=== PATIENT | female | born 1990 | race Caucasian/White ===

== ENCOUNTER 2025-04-01 21:09 | Outpatient (REF) | payer OTHER, SELFPAY ==
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
--- OUTSIDE RECORDS SUMMARY | 2024-07-16 10:30 | XMS_ITS ---
Author Organization [facility] es Address [address] [place] [address] Care Team Providers Care Emergency Communications Operator Name Role Phone Amarjit Wynne Primary Care Provider REASON FOR VISIT EST CARE, COURT ORDERED, LIFE STRESSORS/EVICTION Encounters Encounter Location Date Provider Diagnosis [facility] [address] [place] [address] 2024 Amarjit Wynne Plan Of Treatment No Information Progress Notes * CHRISTOPHER COTTODOB:1990 ([age] yo F)Acc No.[id number]:07/16/2024 Consult - Patient Patient: CHRISTOPHER HOUSTON :?XENA Jackson-SDOB:1990???Age:34 Y ???Sex:FemaleDate:07/16/2024Phone:[phone]:[address] [facility] [place] Subjective: * Chief Complaints: * E ST CARE, COURT ORDERED, LIFE STRESSORS/EVICTION Care Plan Details* * Electronic signature of JOSE RAMON Jackson, [id number] on 04/01/2025 at 09:16 PM ESTSign off status: Pending * Provider: JOSE RAMON Jean Baptiste Date: 0 07/16/2024 Generated for Printing/Faxing/eTransmitting on:?04/01/2025 09:16 PM EST
--- OUTSIDE RECORDS SUMMARY | 2025-04-01 13:00 | XMS_ITS | Encounter Summary ---
Author Organization [facility] Address [address] [place] [address] Care Team Providers Care Lapidary Apprentice Name Role Phone Unavailable Primary Care Provider Unavailabl e Reason for Visit * ReasonCommentsGynecologic Exam Encounter Details DateTypeDepartmentCare Team (Latest Contact Info)Wmstzolvxdo97/29/2025 1:00 PM ESTProcedure Visit [facility]BS[facility] [address] [place] [address] Araceli Webber NP [address] [place] [address] Well woman exam with routine gynecological exam Social History Tobacco UseTypesPacks/DayYears UsedDateSmoking Tobacco: Never Assessed CommentsNoSex and Gender InformationValueDate RecordedSex Assigned at BirthNot on fileLegal RqfJhcqqf65/15/2023 11:47 PM EDTGender IdentityNot on fileSexual OrientationNot on filedocumented as of this encounter Last Filed Vital Signs Vital SignReadingTime TakenCommentsBlood Iycauevl492/7204/01/2025 1:36 PM EST Pulse--Temperature--Respiratory Rate--Oxygen Saturation--Inhaled Oxygen Concentration--Eiblgb93.2 kg (179 lb)04/01/2025 1:36 PM KQDIshlhg079.6 cm (5' 6 )04/01/2025 1:36 PM ESTBody Mass Index28.8904/01/2025 1:36 PM ESTdocumented in this encounter Progress Notes * Araceli Webber NP - 04/01/2025 1:00 PM EST Reason for Appointment: Patient ID: Tina Liu is a 35 y.o. female who presents for Gynecologic Exam Patient presents today for Annual Exam. MEDICATIONS Current Outpatient Medications Medication Instructions FLUoxetine (PROZAC) 10 mg, Daily levocetirizine (XYZAL) 5 mg, Nightly levothyroxine (Synthroid, Levoxyl) 88 MCG tablet Every 24 hours traZODone (DESYREL) 50 mg, Nightly PRN valACYclovir (VALTREX) 1,000 mg, 2 times daily Vyvanse 40 mg, Every morning ALLERGIES No Known Allergies PROBLEMS Active Ambulatory Problems Diagnosis Date Noted No Active Ambulatory Problems Resolved Ambulatory Problems Diagnosis Date Noted No Resolved Ambulatory Problems No Additional Past Medical History HISTORY PAST MEDICAL HISTORY SOCIAL HISTORY No past medical history on file. Social History Tobacco Use Smoking status: Not on file Smokeless tobacco: Not on file Substance Use Topics Alcohol use: Not on file Drug use: Not on file FAMILY HISTORY No family history on file. SURGICAL HISTORY No past surgical history on file. REVIEW OF SYSTEMS Review of Systems: Review of Systems All other systems reviewed and are negative. OBJECTIVE Objective: Physical Exam Constitutional: Appearance: Normal appearance. She is well-developed. Genitourinary: Vulva normal. Breasts: Breasts are soft. Right: Normal. Left: Normal. Cardiovascular: Rate and Rhythm: Normal rate and regular rhythm. Pulmonary: Effort: Pulmonary effort is normal. Breath sounds: Normal breath sounds. Abdominal: General: Bowel sounds are normal. There is no distension. Palpations: Abdomen is soft. Tenderness: There is no abdominal tenderness. There is no guarding or rebound. Musculoskeletal: General: No swelling. Normal range of motion. Right lower leg: No edema. Left lower leg: No edema. Neurological: Mental Status: She is alert and oriented to person, place, and time. Skin: General: Skin is warm and dry. Psychiatric: Mood and Affect: Mood normal. Behavior: Behavior normal. Vitals and nursing note reviewed. Exam conducted with a retail support associate present. Vitals: There is no height or weight on file to calculate BMI. BP: No LMP recorded. Assessment/Plan ICD-10-CM 1. Well woman exam with routine gynecological exam Z01.419 Pap Smear HPV DNA probe, amplified Assessment/Plan Annual Exam: Patient presents today for an annual exam. Patient states she is doing well and has no complaints. Pap was obtained without difficulty. Orders Placed This Encounter Procedures HPV DNA probe, amplified Follow Up: Patient is to return in one year for annual unless needed otherwise. Documented by Nita Almaraz MA on behalf of: Araceli Webber NP documented in this encounter Plan of Treatment NameTypePriorityAssociated DiagnosesOrder SchedulePap SmearPathology and CytologyRoutine Well woman exam with routine gynecological exam Ordered: 04/01/2025HPV DNA probe, amplifiedMicrobiologyRoutine Well woman exam with routine gynecological exam Ordered: 04/01/2025documented as of this encounter Visit Diagnoses Diagnosis Well woman exam with routine gynecological exam Routine gynecological examination documented in this encounter
--- OUTSIDE RECORDS SUMMARY | 2025-04-01 21:16 | XMS_ITS | Clinical Summary ---
Author Organization [facility] Address [address] [place] [address] Care Team Providers Care Screw Eye Assembler Name Role Phone Unavailable Primary Care Provider Unavailabl e Allergies No known active allergies Medications MedicationSigDispense QuantityRefillsLast FilledStart DateEnd DateStatus FLUoxetine (PROzac) 10 MG capsule Take 10 mg by mouth Daily5Active levocetirizine (Xyzal) 5 MG tablet Take 5 mg by mouth at pjiujdn10/14/2025Active levothyroxine (Synthroid, Levoxyl) 88 MCG tablet 1 (one) time each day at the same timeActive Vyvanse 40 MG capsule Take 40 mg by mouth in the morning.5Active traZODone (Desyrel) 50 MG tablet Take 50 mg by mouth as needed at bedtime for sleep5Active valACYclovir (Valtrex) 1 g tablet Take 1,000 mg by mouth in the morning and 1,000 mg before bedtime.04/17/2024 Active Encounters DateTypeDepartmentCare RppjEyojfkuubpd72/29/2025 1:00 PM ESTProcedure Visit NOMTonya NICHOLSON [address] [place] [address] Araceli Webber NP Well woman exam with routine gynecological exam04/01/2025amboo flowsheet [facility] Rob[facility] NICHOLSON [address] [place] [address] Araceli Webber NP from Last 3 Months Social History Tobacco UseTypesPacks/DayYears UsedDateSmoking Tobacco: Never Assessed CommentsNoSex and Gender InformationValueDate RecordedSex Assigned at BirthNot on fileLegal ShcOcxpme17/15/2023 11:47 PM EDTGender IdentityNot on fileSexual OrientationNot on file Last Filed Vital Signs Vital SignReadingTime TakenCommentsBlood Cvbqkuml897/7204/01/2025 1:36 PM EST Pulse--Temperature--Respiratory Rate--Oxygen Saturation--Inhaled Oxygen Concentration--Gzobbg12.2 kg (179 lb)04/01/2025 1:36 PM AFKHkxwof772.6 cm (5' 6 )04/01/2025 1:36 PM ESTBody Mass Index28.8904/01/2025 1:36 PM EST Plan of Treatment Not on file Insurance
--- OUTSIDE RECORDS SUMMARY | 2025-04-01 21:16 | XMS_ITS | Patient Health Record ---
Author Organization [facility] es Address [address] [place] [address] Care Team Providers Care Sub Master Name Role Phone Amarjit Wynne Primary Care Provider Reason For Referral Reason 07/09 *3rd attempt *2nd attempt, lvmsg requesting return call. 06/20 Attempt, called both number in chart and on referral, neither numbers ring. Referral from PCP for treatment of ADHD, and bipolar disorder. Specifically referred to [facility] Diagnosis 1 Encounter for screen ing examination for mental health and behavioral disorders (Z13.30) Referral Organization [facility] Referring Provider First Name FREDA Referring Provider Last Name CARMINA Referring Provider Speciality Family Med icine Referred Organization [facility] Referred Provider Juju Martinez Referred Address [address] [place],[address], Referred Provider Specialty Medicatio ns Referral Priority Routine Encounters Encounter Location Date Provider Diagnosis [facility] [address] [place] [address] 07/09/2024 Amarjit Wynne Plan Of Treatment No Information Insurance Providers Payer Name Payer Address Payer Phone Subscriber Number Group Number Insured Name Patient Relationship to Insured Coverage Start Date Coverage End Date [facility] Medicaid [address] [place] [id number] YADIELEvelyn - patient is the [id number] 2023 Wrap [facility] CareSourcePO [address] [place] [id number], HALEYSelf - patient is the [id number] 2023
--- OUTSIDE RECORDS SUMMARY | 2025-04-01 21:17 | XMS_ITS | Encounter Summary ---
Author Organization [facility] Address [address] [place] [address] Care Team Providers Care Carton Forming Machine Adjuster Name Role Phone Unavailable Primary Care Provider Unavailabl e Encounter Details DateTypeDepartmentCare Team (Latest Contact Info)Ugkamwxqkgd38/29/2025amboo flowsheet [facility] [address] [address] Araceli Webber, KADE [address] [place] [address] Social History Tobacco UseTypesPacks/DayYears UsedDateSmoking Tobacco: Never Assessed CommentsNoSex and Gender InformationValueDate RecordedSex Assigned at BirthNot on fileLegal YwyKjoidf23/15/2023 11:47 PM EDTGender IdentityNot on fileSexual OrientationNot on filedocumented as of this encounter Plan of Treatment Not on file documented as of this encounter Visit Diagnoses Not on filedocumented in this encounter
== END 2025-04-01 21:10 | disposition home or self-care (01) ==
LOC: LAB 21:09
PROVIDERS: Visit Provider Nurse Practitioner Family
DX: Z01.419 Encounter for gynecological examination (general) (routine) without abnormal findings (principal)
CPT/HCPCS: 87624; 88175